=== PATIENT | female | born 1950 | race Caucasian/White ===

== ENCOUNTER 2017-03-23 09:37 | Day surgery (SDC) | payer MEDICARE ==
[2017-03-21 15:24] VITALS: BMI 25.7
[2017-03-23 09:57] VITALS: RESP 16; TEMP 97.5
[2017-03-23] MEDS: LACTATED RINGERS 1,000 ML IV SCH ×2 (10:06→10:13)
[2017-03-23] MEDS ORDERED: LIDOCAINE 1% 20 ML VIAL (10MG/ML) FOR IV START INTRADERMA ONE (10:07)
[2017-03-23] MEDS ORDERED: PROPOFOL 10 MG/ML 20 ML VIAL IV ONE (10:15)
[2017-03-23] MEDS ORDERED: LIDOCAINE 1% INJ 10MG/ML (20 ML MDV) ONE (10:15)
--- NOTE | 2017-03-23 10:36 | P.PCN ---
Date of Procedure: 03/23/17 Procedure(s) Performed: BRIEF HISTORY: Patient is a 67-year-old pleasant female, scheduled for an elective colonoscopy as a part of evaluation of prior history of colon polyps. PROCEDURE PERFORMED: Colonoscopy. PREOPERATIVE DIAGNOSIS: History of colon polyps. IV sedation per Anesthesia. PROCEDURE: After informed consent was obtained, the patient, was brought into the endoscopy unit. IV sedation was administered by Anesthesia under continuous monitoring. Digital rectal examination was normal. Initially the Olympus CF- 160 flexible video colonoscope was then inserted in the rectum, gradually advanced into the cecum without any difficulty. Careful examination was performed as the scope was gradually being withdrawn. Ileocecal valve and the appendiceal orifice were visualized and appeared normal. Prep was excellent. Mucosa of the cecum, ascending colon, transverse colon, descending colon, sigmoid colon, and rectum appeared normal. Retroflexion was performed in the rectum and no lesions were seen. Scattered sigmoidal reticulosis seen. The patient tolerated the procedure well. IMPRESSION: Normal-appearing colon from rectum to cecum with no evidence of colorectal neoplasia. Scattered sigmoidal reticulosis. RECOMMENDATIONS: Findings of this examination were discussed with the patient as well as her family. She was advised to have a repeat screening colonoscopy in 5 years because of the prior history of colon polyps.
[2017-03-23 11:18] VITALS: BP 120/81; PULSE 69
== END 2017-03-23 11:36 | disposition home or self-care (01) ==
LOC: ORWHC2ENDO 09:37
PROVIDERS: ATTEND Internal Medicine Gastroenterology
DX: Z12.11 Encounter for screening for malignant neoplasm of colon (principal); K57.30 Diverticulosis of large intestine without perforation or abscess without bleeding; Z86.010 Personal history of colon polyps; I10 Essential (primary) hypertension; Z79.82 Long term (current) use of aspirin; Z79.899 Other long term (current) drug therapy
CPT/HCPCS: J2001; J2704; G0105; 45378

== ENCOUNTER → 2018-10-03 | Outpatient (CLI) | payer MEDICARE ==
--- NOTE | 2018-10-03 08:07 | US ---
EXAMINATION TYPE: US abdomen complete DATE OF EXAM: 10/03/2018 COMPARISON: NONE CLINICAL HISTORY: K83.1 Cholecystitis. Pt states abnormal LFT's EXAM MEASUREMENTS: Liver Length: 12.5 cm Gallbladder Wall: 0.4 cm CBD: 0.4 cm Spleen: 9.3 cm Right Kidney: 9.9 x 4.0 x 4.6 cm Left Kidney: 10.6 x 4.8 x 3.8 cm Pancreas: wnl Liver: wnl Gallbladder: GB wall slightly thickened Evidence for sonographic Castellon's sign: No CBD: wnl Spleen: wnl Right Kidney: Possible hypoechoic lesion mid= 0.7 x 0.7 x 0.6 cm, does not appear cystic Left Kidney: wnl Upper IVC: wnl Abd Aorta: wnl IMPRESSION: 1. Gallbladder wall slightly thickened at 4 mm. No gallstones. Acalculous cholecystitis in the differ ential diagnosis. 2. Hypoechoic lesion measuring 7 mm right kidney too small to characterize could be correlated with C T scan for further evaluation. Does not meet the criteria of a simple cyst.
== END | disposition home or self-care (01) ==
LOC: RADUSWWP 07:04
PROVIDERS: ATTEND Family Medicine
DX: K82.8 Other specified diseases of gallbladder (principal)
CPT/HCPCS: 76700

== ENCOUNTER → 2019-01-22 | Outpatient (CLI) | payer MEDICARE ==
--- NOTE | 2019-01-22 16:02 | MR ---
EXAMINATION TYPE: MR angio head wo con DATE OF EXAM: 01/22/2019 COMPARISON: None HISTORY: Vertigo, Family Hx of aneurysm TECHNIQUE: Time of flight images focusing on the Ransom of Gonzalez were performed without contrast.. 2-D and 3-D postprocessing imaging is performed. FINDINGS: The vertebral arteries are overall codominant. There is patency of the vertebrobasilar syst em. There is origin of the right posterior cerebral artery. Posterior circulation appears paten t in its proximal visualized portions. No hemodynamically significant stenosis nor focal aneurysmal o utpouching of the major intracranial vasculature. Slightly prominent infundibulum is seen of the orig in of the right posterior cerebral artery from the internal carotid artery terminus. There is an ante rior communicating artery is seen A diminutive left posterior communicating artery however is origin of the posterior cerebral ar felisha is again noted and therefore ho-chunk of Gonzalez is incomplete. IMPRESSION: Slightly prominent infundibulum of the normal variant origin of the right posterior cereb ral artery from the internal carotid artery terminus, however no discrete aneurysm is seen of the shima or intracranial vasculature.
== END | disposition home or self-care (01) ==
LOC: RADMRIMAIN 12:12
PROVIDERS: ATTEND Psychiatry & Neurology Neurology
DX: R42 Dizziness and giddiness (principal); Z82.3 Family history of stroke
CPT/HCPCS: 70544

== ENCOUNTER → 2022-05-01 | Outpatient (CLI) | payer MEDICARE ==
--- NOTE | 2022-05-01 16:29 | US ---
EXAMINATION TYPE: US thyroid st tissue head/neck DATE OF EXAM: 05/01/2022 COMPARISON: NONE CLINICAL HISTORY: R59.0 LOCALIZED ENLARGED LYMPH NODES. Pt states physician felt palpable lump left l ateral neck/ pt states she does not feel any palpable lumps Technique: Left lateral neck scanned, Findings: No evidence of lymphadenopathy or palpable abnormality visualized. IMPRESSION: No organizing fluid collection or mass identified.
== END | disposition home or self-care (01) ==
LOC: RADUSWWP 15:14
PROVIDERS: ATTEND Family Medicine
DX: R59.0 Localized enlarged lymph nodes (principal)
CPT/HCPCS: 76536

== ENCOUNTER → 2023-10-30 | Outpatient (CLI) | payer MEDICARE ==
--- NOTE | 2023-10-31 13:14 | MM ---
Reason for Exam: Screening (asymptomatic). Last screening mammogram was performed 12 month(s) ago. Patient History: Menarche at age 12. First Full-Term at age 20. Postmenopausal. Patient used Hormonal Contraceptives for 2 years. Patient used Estrogen and Progesterone for 1 year. 07/2015, US biopsy breast VAD RT on the Right side. Mother had breast cancer, age 74. Risk Values: Mojgan 5 year model risk: 4.2%. NCI Lifetime model risk: 10.7%. Prior Study Comparison: 10/18/2021 Bilateral Screening Mammogram, [facility]. 10/27/2021 Right Diagnostic Mammogram, [facility]. 10/19/2022 Bilateral Screening Mammogram, [facility]. Tissue Density: The breasts are heterogeneously dense, which may obscure small masses. Findings: Analyzed By CAD. There is no suspicious group of microcalcifications or new suspicious mass in either breast. Overall Assessment: Benign, BI-RAD 2 Management: Screening Mammogram of both breasts in 1 year. . Patient should continue monthly self-breast exams. A clinical breast exam by your physician is recommended on an annual basis. This exam should not preclude additional follow-up of suspicious palpable abnormalities. Note on Mojgan scores and lifetime risk: 1. A Mojgan score greater than 3% is considered moderate risk. If this is the case, consider specialist referral to assess eligibility for a risk reducing agent. 2. If overall lifetime risk for the development of breast cancer is 20% or higher, the patient may qualify for future screening with alternating mammogram and breast MRI. Electronically signed and approved by: Al Ramos M.D. Radiologis
== END | disposition home or self-care (01) ==
LOC: RADMAMWWP 09:11
PROVIDERS: ATTEND Family Medicine
DX: Z12.31 Encounter for screening mammogram for malignant neoplasm of breast (principal); Z78.0 Asymptomatic menopausal state; Z80.3 Family history of malignant neoplasm of breast
CPT/HCPCS: 77063; 77067

== ENCOUNTER → 2024-05-26 | Outpatient (CLI) | payer MEDICARE ==
[2024-05-26 09:58] LABS: African American GFR (CKD) 78 (>60 ml/min/1.73 sqM); Blood Urea Nitrogen 19 mg/dL (7-17); Non-African American GFR(CKD) 68 (>60 ml/min/1.73 sqM)
--- NOTE | 2024-05-26 11:45 | CT ---
EXAMINATION TYPE: CT angio chest DATE OF EXAM: 05/26/2024 COMPARISON: NONE HISTORY: AORTIC ANEURYSM CT DLP: 360.9 mGycm. Automated Exposure Control for Dose Reduction was Utilized. CONTRAST: CTA scan of the thorax is performed without and with IV Contrast, patient injected with 80 mL of Isov ue 370, aneurysm protocol. . 3D reconstructed images are created on an independent workstation and re viewed. FINDINGS: LUNGS: A few tiny peripheral right upper lobe nodules are seen measuring up to 4 mm axial image 10. T here is mild to moderate bilateral lower lung linear scarring and/or atelectasis. No pleural effusion or pneumothorax is seen bilaterally. MEDIASTINUM: There is satisfactory enhancement of the central pulmonary arteries. Noncontrast images show no suspicious hyperdense material to suggest intramural hematoma. The ascending aorta measures u p to 4.0 cm in diameter. There is bovine type arch which is normal variant. No aneurysm extension int o the descending aorta is seen. Moderate coronary artery calcification is present. Mild cardiomegaly. No pericardial effusion is seen. OTHER: Few scattered colonic diverticula are present. IMPRESSION: Ascending aortic aneurysm up to 4.0 cm. [facility], , 05/26/2024 11:43 AM
== END | disposition home or self-care (01) ==
LOC: RADCTMAIN 09:20
PROVIDERS: ATTEND Family Medicine
DX: I71.21 Aneurysm of the ascending aorta, without rupture (principal)
CPT/HCPCS: 82565; 84520; 71275; 36415; Q9967

== ENCOUNTER → 2024-11-18 | Outpatient (CLI) | payer MEDICARE ==
--- NOTE | 2024-11-18 11:20 | MM ---
Reason for Exam: Screening (asymptomatic). Last mammogram was performed 1 year(s) and 1 month(s) ago. Patient History: Menarche at age 12. First Full-Term at age 20. Postmenopausal. Patient used Hormonal Contraceptives for 2 years. Patient used Estrogen and Progesterone for 1 year. 07/2015, US biopsy breast VAD RT on the Right side. Mother had breast cancer, age 74. Risk Values: Mojgan 5 year model risk: 4.2%. NCI Lifetime model risk: 10.2%. Prior Study Comparison: 10/27/2021 Right Diagnostic Mammogram, [facility] . 10/19/2022 Bilateral Screening Mammogram, [facility] . 10/30/2023 Bilateral MG 3D screening mammo w/cad, [facility]. Tissue Density: The breasts are heterogeneously dense, which may obscure small masses. Findings: Analyzed By CAD. Unchanged bilateral areas of asymmetric density. There is no suspicious group of microcalcifications or new suspicious mass in either breast. Overall Assessment: Benign, BI-RAD 2 Management: Screening Mammogram of both breasts in 1 year. See note below in regards to the patient's increased 5 year Mojgan score. Patient should continue monthly self-breast exams. A clinical breast exam by your physician is recommended on an annual basis. This exam should not preclude additional follow-up of suspicious palpable abnormalities. Note on Mojgan scores and lifetime risk: 1. A Mojgan score greater than 3% is considered moderate risk. If this is the case, consider specialist referral to assess eligibility for a risk reducing agent. 2. If overall lifetime risk for the development of breast cancer is 20% or higher, the patient may qualify for future screening with alternating mammogram and breast MRI. [facility], , 11/18/2024 11:17 AM. Electronically signed and approved by: Gee Carl M.D. Radiologist
== END | disposition home or self-care (01) ==
LOC: RADMAMWWP 07:50
PROVIDERS: ATTEND Family Medicine
DX: Z12.31 Encounter for screening mammogram for malignant neoplasm of breast (principal); R92.333 Mammographic heterogeneous density, bilateral breasts; Z78.0 Asymptomatic menopausal state; Z80.3 Family history of malignant neoplasm of breast; Z92.0 Personal history of contraception
CPT/HCPCS: 77063; 77067

== ENCOUNTER → 2024-12-09 | Outpatient (CLI) | payer MEDICARE ==
--- NOTE | 2024-12-09 14:51 | US ---
EXAMINATION TYPE: US carotid duplex BILAT DATE OF EXAM: 12/09/2024 COMPARISON: MR 2019 CLINICAL INDICATION: Female, 74 years old with history of R09.89 SX CARDIOVASC SYSTEM; Bruit per orde r. Patient states she has a bulge in her right neck. Patient takes medication for high blood pressure and cholesterol, is not a smoker. TECHNIQUE: Grayscale, color Doppler and spectral Doppler evaluation of the bilateral carotid systems and vertebral arteries. Indirect Doppler criteria was utilized. FINDINGS: EXAM MEASUREMENTS: RIGHT: Peak Systolic Velocity (PSV) cm/sec ----- Right CCA: 54.6 ----- Right ICA: 88.1 ----- Right ECA: 61.5 ICA/CCA ratio: 1.6 RIGHT: End Diastole cm/sec ----- Right CCA: 16.8 ----- Right ICA: 31.5 ----- Right ECA: 9.9 LEFT: Peak Systolic Velocity (PSV) cm/sec ----- Left CCA: 64.5 ----- Left ICA: 60.9 ----- Left ECA: 51.3 ICA/CCA ratio: 0.9 LEFT: End Diastole cm/sec ----- Left CCA: 17.8 ----- Left ICA: 22.2 ----- Left ECA: 7.5 VERTEBRALS (direction of flow): Right Vertebral: Antegrade Left Vertebral: Antegrade Rhythm: Normal LACE ROLLER OPERATOR NOTES: No elevated velocities. *Bilateral ICA dive quickly posterior. Color Doppler imaging shows patency with blood flow throughout the carotid artery. IMPRESSION: No hemodynamically significant internal carotid artery stenosis on either side. Criteria for Assigning % of Stenosis / Diameter reduction (Estimation based on the indirect measurements of the internal carotid artery velocities (ICA PSV). 1. Normal (no stenosis)=ICA PSV < 180 cm/s: ratio < 2.0: ICA EDV<40 cm/s. 2. Less than 50% stenosis=ICA PSV < 180 cm/s: ratio < 2.0: ICA EDV<40 cm/s. 3. 50 to 69% stenosis=ICA PSV of 180 to 230 cm/s: ration 2.0 ? 4.0: ICA EDV 40-100 cm/s. PSV 125-180 cm/sec and ICA/CCA PSV Ratio ? 2.0 is also consistent with 50-69% stenosis 4. Greater than 70% stenosis to near occlusion= ICA PSV > 230 cm/s: ratio > 4.0: ICA EDV > 100 cm/s. 5. Near occlusion= ICA PSV velocities may be low or undetectable: variable ratio and ICA EDV. 6. Total occlusion=unable to detect flow. [facility], , 12/09/2024 2:48 PM
== END | disposition home or self-care (01) ==
LOC: RADUSWWP 14:06
PROVIDERS: ATTEND Family Medicine
DX: R09.89 Other specified symptoms and signs involving the circulatory and respiratory systems (principal)
CPT/HCPCS: 93880